=== PATIENT | female | born 1995 | race Caucasian/White ===

== ENCOUNTER → 2020-12-12 14:36 | Outpatient (CLI) | payer OTHER, SELFPAY ==
--- NOTE | ~2020-12-12 | US_ITS ---
US pelvic complete DATE: 12/12/2020 14:58 INDICATION: Pelvic pain, irregular menstrual periods TECHNIQUE: Real-time imaging via transabdominal approach COMPARISON: None FINDINGS: The uterus measures 8.8 cm height, 2.6 cm anteroposterior and 5.67 m transverse dimension. The central endometrial echo complex measures 4 mm AP dimension, normal. Right ovary 2.3 x 1.4 x 2.4 cm. Left ovary 4.2 x 2.8 x 3.0 cm with a 2.8 x 2.6 x 2.5 cm cyst. There is vascular flow to both ovaries. No free pelvic fluid collection is detected. IMPRESSION: 2.8 cm left ovarian cyst Reviewed, dictated and finalized at [facility]. Reviewed, dictated and finalized at [facility]. IMPRESSION: 2.8 cm left ovarian cyst
== END ==
PROVIDERS: Visit Provider Nurse Practitioner
DX: R10.2 Pelvic and perineal pain (principal); N83.202 Unspecified ovarian cyst, left side
CPT/HCPCS: 76856